=== PATIENT | male | born 1985 | race Hispanic/Latino ===

== ENCOUNTER 2018-04-21 06:41 | Emergency (ER) | payer SELFPAY ==
--- NOTE | 2018-04-21 09:20 | ED PDOC ---
HPI: General Adult Time Seen by Provider: 04/21/18 07:06 Chief Complaint (Nursing): Medical Clearance Chief Complaint (Provider): medical clearance History Per: Patient History/Exam Limitations: no limitations Severity: Mild Additional Complaint(s): 33yo male under police custody brought for medical clearance, states he felt anxious earlier but has since resolved. Has long history of anxiety and knows symptoms well. Denies suicidal or depressive thoughts currently. Denies drug use, admits to etoh use last night. Denies injury, trauma or current pain. Past Medical History Reviewed: Historical Data, Nursing Documentation, Vital Signs Vital Signs: Last Vital Signs Temp 97.8 F 04/21/18 06:45 Pulse 122 H 04/21/18 06:45 Resp 18 04/21/18 06:45 BP 129/70 04/21/18 06:45 Pulse Ox 96 04/21/18 06:45 - Medical History PMH: Anxiety - Family History Family History: States: Unknown Family Hx - Social History Alcohol: Occasional - Allergies Allergies/Adverse Reactions: Allergies Allergy/AdvReac Type Severity Reaction Status Date / Time No Known Allergies Allergy Verified 04/21/18 06:50 Review of Systems Constitutional: Negative for: Fever ENT: Negative for: Ear Pain Cardiovascular: Positive for: Palpitations. Negative for: Chest Pain Respiratory: Negative for: Cough, Shortness of Breath Gastrointestinal: Negative for: Nausea, Vomiting Genitourinary Male: Negative for: Dysuria Musculoskeletal: Negative for: Neck Pain Skin: Negative for: Rash, Lesions, Jaundice Neurological: Positive for: Dizziness. Negative for: Weakness, Numbness Psych: Positive for: Anxiety. Negative for: Depression, Suicidal ideation Physical Exam - Reviewed Nursing Documentation Reviewed: Yes Vital Signs Reviewed: Yes - Physical Exam Appears: Positive for: Non-toxic (speech nonpressured, good eye contact, cooperative and conversant), No Acute Distress Head Exam: Positive for: ATRAUMATIC, NORMAL INSPECTION, NORMOCEPHALIC Skin: Positive for: Normal Color, Warm, DRY Eye Exam: Positive for: EOMI, Normal appearance, PERRL ENT: Positive for: Normal ENT Inspection Neck: Positive for: Normal, Painless ROM Cardiovascular/Chest: Positive for: Regular Rate, Rhythm Respiratory: Positive for: CNT, Normal Breath Sounds Gastrointestinal/Abdominal: Positive for: Normal Exam, Soft Back: Positive for: Normal Inspection Extremity: Positive for: Normal ROM Neurologic/Psych: Positive for: Alert, Oriented, Mood/Affect (fair insight mood pleasant). Negative for: Motor/Sensory Deficits, Aphasia, Facial Droop - ECG O2 Sat by Pulse Oximetry: 96 Medical Decision Making Medical Decision Making: cleared by crisis for discharge to police custody sinus rhythm on gambling monitor Disposition - Clinical Impression Clinical Impression: Anxiety - Disposition Referrals: [facility] [Outside] Condition: STABLE Additional Instructions: Medically and psychiatrically clear for incarceration at this time. Patient should be allowed nicotine replacement patch per any snf protocol if applicable. Instructions: General (DC) Forms: [employer] (Turkmen)
[2018-04-21 10:27] VITALS: BP 120/76; PULSE 95; RESP 19; TEMP 97.6; O2SAT 98
== END 2018-04-21 10:33 | disposition home or self-care (01) ==
LOC: H.ER 06:41
DX: F41.9 Anxiety disorder, unspecified (principal)